=== PATIENT | female | born 1950 | race Caucasian/White ===

== ENCOUNTER → 2017-07-31 | Outpatient (CLI) | payer MEDICARE, OTHER ==
[~2017-07-31] MED LIST: ALDACTONE50 MG PO; AMBIEN 10MG10 MG PO; AMBIEN CR 12.12.5 MG PO; AMBIEN CR12.5 MG PO; ASACOL HD800 MG PO; ASPIR-LOW81 MG PO; ASPIRIN 32325 MG/TAB PO; ATARAX 25MG25 MG/TAB PO; BENICAR 20MG TA20 MG PO; BENICAR40 MG PO; BENTYL 10MG10 MG/CAP PO; BENTYL 20MG20 MG/TAB PO; CARVEDILOL PO; CATAPRES 0.1MG0.1 MG PO; CATAPRES-TTS 10.1 M1 TD; CATAPRES-TTS 20.2 M1 TOP; CATAPRES0.2 MG PO; CEFTIN 250250 MG/TAB PO; CLONIDINE0.1 MG PO; COLACE 100100 MG/CAP PO; COREG; COREG 25MG25 MG/TAB PO; COZAAR100 MG PO; CYMBALTA 30MG30 MG PO; CYMBALTA 60MG60 MG PO; DIAZEPAM PO; DOXAZOCIN; ECOTRIN325 MG PO; FISH OIL1 IU PO; GUAIATUSSIN AC120 ML PO; HCTZ; HCTZ 25MG TAB25 MG PO; HCTZ 25MG25 MG PO; HYDROCODONE/APAP; HYGROTON 2525 MG/TAB PO; HYZAAR PO; IBUPROFEN400 MG PO; IRON TABLETS325 MG PO; K-DUR 10 MEQ T10 MEQ PO; KLOR-CON 1010 MEQ; KLOR-CON 1010 MEQ PO; LEVAQUIN 5500 MG/TA1 PO; LYRICA 100MG C100 M1 PO; LYRICA 150MG C150 MG PO; MACROBID 1100 MG/CAP PO; NATURAL HORMONES; NEURONTIN300 MG/CAP PO; NITROSTAT0.4 MG SL; NORCO 325 MG-51 TAB PO; NORVASC 5MG5 MG/TAB PO; NORVASC2.5 MG PO; OCEAN NASAL SPR45 ML; PERCOCET 325 MG1 TA2 PO; PROTONIX 40MG T40 MG PO; PROVENTIL0.09 MG/A1 IH; RESTORIL 1515 MG/CAP PO; RESTORIL15 MG PO; SPIRONOLACTONE25 MG PO; TAMIFLU 75MG75 MG PO; TOPAMAX50 MG PO; TRAZADONE HYDR100 MG PO; VALIUM 5MG T5 MG/TAB PO; VALIUM5 MG PO; VITAMIN C500 MG PO; omacor
== END ==
LOC: COL.RAD 13:24
DX: R13.10 Dysphagia, unspecified (principal); K44.9 Diaphragmatic hernia without obstruction or gangrene

== ENCOUNTER 2018-03-03 11:35 | Observation (INO) | payer MEDICARE, OTHER ==
[~2018-03-03] VITALS: Ht 149.9 cm; Wt 63.8 kg
[2018-03-03] MEDS ORDERED: HCTZ 25MG TAB25 MG PO (11:59)
[2018-03-03] MEDS ORDERED: DIOVAN 160MG160 MG PO (11:59)
[2018-03-03] MEDS ORDERED: PROCARDIA20 MG PO (12:01)
[2018-03-03] MEDS ORDERED: NITROSTAT0.4 MG/TAB PO (12:02)
[2018-03-03 12:06] LABS: COLLECTION METHOD CLEAN CATCH
[2018-03-03 12:11] LABS: BASO # 0.1 (0.0-0.2); BASO % 0.9 % (0.0-2.0); EOS # 0.4 (0.0-0.7); EOS % 3.1 % (0-4.0); GRAN # 7.5 (1.4-6.5); GRAN % 58.4 % (42.2-75.2); HEMATOCRIT 44.1 % (37.0-47.0); LYMPH # 4.1 (1.2-3.4); LYMPH % 31.8 % (20.0-51.0); MEAN CELL VOLUME 91 fl (80.0-100.0); MEAN CORPUSCULAR HEMOGLOBIN 31 pg (27.0-31.0); MEAN CORPUSCULAR HGB CONC 34 g/dl (33.0-37.0); MEAN PLATELET VOLUME 10.5 fl (7.4-10.4); MONO # 0.7 (0.1-0.6); MONO % 5.4 % (1.7-9.3); PLATELET COUNT 348 K/mm3 (130-400); RED BLOOD COUNT 4.87 M/mm3 (4.10-5.30); REDCELL DISTRIBUTION WIDTH-CV 12.5 % (11.5-14.5)
[2018-03-03 12:13] LABS: PH 6 (5-8); SQUAMOUS EPITHELIAL 0-2 /hpf; URINE APPEARANCE Clear; URINE BACTERIA None Seen /hpf; URINE BILIRUBIN Negative (NEGATIVE); URINE BLOOD Negative (NEGATIVE); URINE COLOR Straw; URINE GLUCOSE Negative (NEGATIVE); URINE KETONE Negative (NEGATIVE); URINE LEUKOCYTE ESTERASE Negative (NEGATIVE); URINE NITRATE Negative (NEGATIVE); URINE PROTEIN(semi-quant) Negative (NEGATIVE); URINE RBC 0-2 /hpf; URINE UROBILINOGEN Negative (NEGATIVE)
[2018-03-03 12:24] LABS: ALBUMIN 4.1 gm/dL (3.5-5.0); BILIRUBIN,TOTAL 0.6 mg/dL (0.0-1.0); CALCIUM 10.1 mg/dL (8.4-10.2); CREATININE, serum 0.97 mg/dL (0.52-1.25); POTASSIUM 3.4 mmol/L (3.4-5.0); TOTAL PROTEIN 7.3 gm/dL (6.4-8.2)
[2018-03-03 17:30] VITALS: BP 141/65; PULSE 60; TEMP 97.8
[2018-03-03] MEDS ORDERED: CARDURA 1MG1 MG PO (17:41)
[2018-03-03 20:00] VITALS: BP 122/68; PULSE 60; TEMP 98.1
[2018-03-04] VITALS (8 sets, daily range): BP systolic 104–131; BP diastolic 49–65; PULSE 58–77; TEMP 97.2–98.8
[2018-03-04 07:16] LABS: BASO # 0.1 (0.0-0.2); BASO % 1.2 % (0.0-2.0); EOS # 0.5 (0.0-0.7); EOS % 4.3 % (0-4.0); GRAN # 6.4 (1.4-6.5); GRAN % 58.4 % (42.2-75.2); HEMATOCRIT 39.3 % (37.0-47.0); LYMPH # 2.9 (1.2-3.4); LYMPH % 26.6 % (20.0-51.0); MEAN CELL VOLUME 93 fl (80.0-100.0); MEAN CORPUSCULAR HEMOGLOBIN 31 pg (27.0-31.0); MEAN CORPUSCULAR HGB CONC 33 g/dl (33.0-37.0); MEAN PLATELET VOLUME 10.5 fl (7.4-10.4); MONO % 9.1 % (1.7-9.3); PLATELET COUNT 282 K/mm3 (130-400); RED BLOOD COUNT 4.21 M/mm3 (4.10-5.30); REDCELL DISTRIBUTION WIDTH-CV 12.9 % (11.5-14.5)
[2018-03-04 07:19] LABS: HEMOGLOBIN 12.9 g/dl (12.5-16.0)
[2018-03-04 07:23] LABS: CALCIUM 8.7 mg/dL (8.4-10.2); CREATININE, serum 0.84 mg/dL (0.52-1.25); POTASSIUM 3.4 mmol/L (3.4-5.0)
[2018-03-05 04:09] VITALS: BP 127/65; PULSE 60; TEMP 97.9
[2018-03-05 07:55] VITALS: BP 96/50; PULSE 66; TEMP 98
[2018-03-05 08:37] LABS: BASO # 0.1 (0.0-0.2); BASO % 1.2 % (0.0-2.0); EOS # 0.5 (0.0-0.7); EOS % 4.9 % (0-4.0); GRAN # 5.3 (1.4-6.5); GRAN % 52.3 % (42.2-75.2); HEMOGLOBIN 12.7 g/dl (12.5-16.0); LYMPH # 3.4 (1.2-3.4); LYMPH % 33.3 % (20.0-51.0); MEAN CELL VOLUME 91 fl (80.0-100.0); MEAN CORPUSCULAR HEMOGLOBIN 30 pg (27.0-31.0); MEAN CORPUSCULAR HGB CONC 33 g/dl (33.0-37.0); MEAN PLATELET VOLUME 10.4 fl (7.4-10.4); MONO # 0.8 (0.1-0.6); PLATELET COUNT 276 K/mm3 (130-400); RED BLOOD COUNT 4.19 M/mm3 (4.10-5.30); REDCELL DISTRIBUTION WIDTH-CV 12.8 % (11.5-14.5)
[2018-03-05 08:40] LABS: CALCIUM 8.8 mg/dL (8.4-10.2); CREATININE, serum 0.79 mg/dL (0.52-1.25); POTASSIUM 3.4 mmol/L (3.4-5.0)
[2018-03-05] MEDS ORDERED: BENADRYL25 M2 PO (08:53)
[2018-03-05] MEDS ORDERED: CIPRO 500MG TA500 MG PO (08:55)
[2018-03-05] MEDS ORDERED: FLAGYL500 MG PO (08:55)
[2018-03-05] MEDS ORDERED: ULTRAM 50MG TAB50 MG PO (08:57)
[2018-03-05] MEDS ORDERED: HCTZ 25MG TAB25 MG PO (08:58)
[2018-03-05] MEDS ORDERED: DIOVAN 80MG80 MG PO (09:00)
[2018-03-05] MEDS ORDERED: ZOFRAN ODT4 MG PO ×3 (09:14→09:15)
== END 2018-03-05 10:00 | disposition home or self-care (01) ==
LOC: COL.ER 11:35 → MEDICAL 15:59
PROVIDERS: Emergency Medicine; Physician Assistant
DX: K52.9 Noninfective gastroenteritis and colitis, unspecified (principal); I10 Essential (primary) hypertension; K21.9 Gastro-esophageal reflux disease without esophagitis; K44.9 Diaphragmatic hernia without obstruction or gangrene; J45.909 Unspecified asthma, uncomplicated; Z90.710 Acquired absence of both cervix and uterus; Z90.721 Acquired absence of ovaries, unilateral; Z88.2 Allergy status to sulfonamides; Z88.6 Allergy status to analgesic agent; Z82.49 Family history of ischemic heart disease and other diseases of the circulatory system; Z80.51 Family history of malignant neoplasm of kidney
CPT/HCPCS: 99231-AI; G0378; G8978-GP; G8979-GP; J0744; J2270; J2405; J3010; J7030; Q9967

== ENCOUNTER 2018-04-26 16:05 | Inpatient (IN) | payer MEDICARE, OTHER ==
[~2018-04-26] VITALS: Ht 149.9 cm; Wt 61.4 kg
[~2018-04-26 16:05] MED LIST changes: +BENADRYL25 M2 PO; +CARDURA 1MG1 MG PO; +CIPRO 500MG TA500 MG PO; +DIOVAN 160MG160 MG PO; +DIOVAN 80MG80 MG PO; +FLAGYL500 MG PO; +NITROSTAT0.4 MG/TAB PO; +PROCARDIA20 MG PO; +ULTRAM 50MG TAB50 MG PO; +ZOFRAN ODT4 MG PO
[2018-04-26 16:41] LABS: BASO # 0.2 (0.0-0.2); BASO % 1.3 % (0.0-2.0); EOS # 0.5 (0.0-0.7); EOS % 4.3 % (0-4.0); GRAN # 5.7 (1.4-6.5); GRAN % 48.9 % (42.2-75.2); HEMATOCRIT 46.9 % (37.0-47.0); HEMOGLOBIN 16.2 g/dl (12.5-16.0); LYMPH # 4.4 (1.2-3.4); MEAN CELL VOLUME 88 fl (80.0-100.0); MEAN CORPUSCULAR HEMOGLOBIN 31 pg (27.0-31.0); MEAN CORPUSCULAR HGB CONC 35 g/dl (33.0-37.0); MONO # 0.8 (0.1-0.6); MONO % 7.2 % (1.7-9.3); PLATELET COUNT 360 K/mm3 (130-400); RED BLOOD COUNT 5.32 M/mm3 (4.10-5.30)
[2018-04-26 16:55] LABS: ALANINE AMINOTRANSFERASE 42 U/L (9-52); ALBUMIN 4.7 gm/dL (3.5-5.0); ALKALINE PHOSPHATASE 95 U/L (50-136); ANION GAP 18 mmol/L (7-16); AST,SGOT 34 U/L (15-37); BILIRUBIN,TOTAL 0.6 mg/dL (0.0-1.0); BLOOD UREA NITROGEN 13 mg/dL (7-17); C-REACTIVE PROTEIN 1.2 mg/dL (0.0-0.9); CARBON DIOXIDE 25 mmol/L (22-30); CHLORIDE 92 mmol/L (98-107); CREATININE, serum 0.84 mg/dL (0.52-1.25); GLUCOSE 162 mg/dL (74-106); LIPASE 40 U/L (23-300); SODIUM 136 mmol/L (137-145)
[2018-04-26 16:56] LABS: POTASSIUM 2.8 mmol/L (3.4-5.0)
[2018-04-26 17:03] LABS: TROPONIN-I < 0.012 ng/mL (0.000-0.034)
[2018-04-26 17:32] LABS: COLLECTION METHOD CLEAN CATCH
[2018-04-26 17:37] LABS: MUCOUS Present /lpf; PH 7 (5-8); URINE APPEARANCE Clear; URINE BACTERIA None Seen /hpf; URINE BILIRUBIN Negative (NEGATIVE); URINE BLOOD Negative (NEGATIVE); URINE COLOR Amber; URINE GLUCOSE Negative (NEGATIVE); URINE KETONE Trace (NEGATIVE); URINE LEUKOCYTE ESTERASE Negative (NEGATIVE); URINE NITRATE Negative (NEGATIVE); URINE PROTEIN(semi-quant) Negative (NEGATIVE); URINE RBC 0-2 /hpf; URINE UROBILINOGEN >=4.0 mg/dL (NEGATIVE)
[2018-04-26] MEDS ORDERED: DIOVAN 40MG40 MG PO (19:57)
[2018-04-26] MEDS ORDERED: ALDACTONE 25MG25 M1 PO (19:57)
[2018-04-26 21:12] LABS: MAGNESIUM 1.4 mg/dL (1.6-2.3)
[2018-04-26 21:24] LABS: TROPONIN-I < 0.012 ng/mL (0.000-0.034)
[2018-04-26 22:36] VITALS: BP 140/63; PULSE 83; TEMP 97.9
[2018-04-27] VITALS (8 sets, daily range): BP systolic 105–146; BP diastolic 37–63; PULSE 61–98; TEMP 97.7–98.3
[2018-04-27 07:05] LABS: BASO # 0.1 (0.0-0.2); EOS # 0.4 (0.0-0.7); EOS % 3.8 % (0-4.0); GRAN # 5.9 (1.4-6.5); GRAN % 53.1 % (42.2-75.2); HEMATOCRIT 37.3 % (37.0-47.0); LYMPH # 3.6 (1.2-3.4); LYMPH % 32.6 % (20.0-51.0); MEAN CELL VOLUME 90 fl (80.0-100.0); MEAN CORPUSCULAR HEMOGLOBIN 31 pg (27.0-31.0); MEAN CORPUSCULAR HGB CONC 34 g/dl (33.0-37.0); MEAN PLATELET VOLUME 10.1 fl (7.4-10.4); MONO % 9.1 % (1.7-9.3); PLATELET COUNT 268 K/mm3 (130-400); RED BLOOD COUNT 4.14 M/mm3 (4.10-5.30); REDCELL DISTRIBUTION WIDTH-CV 13.1 % (11.5-14.5)
[2018-04-27 07:07] LABS: HEMOGLOBIN 12.7 g/dl (12.5-16.0)
[2018-04-27 07:17] LABS: ALANINE AMINOTRANSFERASE 35 U/L (9-52); ALBUMIN 3.2 gm/dL (3.5-5.0); ALKALINE PHOSPHATASE 60 U/L (50-136); ANION GAP 9 mmol/L (7-16); AST,SGOT 30 U/L (15-37); BILIRUBIN,TOTAL 0.6 mg/dL (0.0-1.0); BLOOD UREA NITROGEN 8 mg/dL (7-17); CALCIUM 7.9 mg/dL (8.4-10.2); CARBON DIOXIDE 26 mmol/L (22-30); CHLORIDE 100 mmol/L (98-107); GLUCOSE 93 mg/dL (74-106); POTASSIUM 3.1 mmol/L (3.4-5.0); SODIUM 135 mmol/L (137-145); TOTAL PROTEIN 5.7 gm/dL (6.4-8.2)
[2018-04-27 07:29] LABS: TROPONIN-I < 0.012 ng/mL (0.000-0.034)
[2018-04-28 04:42] VITALS: BP 126/53; PULSE 83; TEMP 99.1
[2018-04-28 08:09] LABS: BASO # 0.1 (0.0-0.2); BASO % 1.3 % (0.0-2.0); EOS # 0.6 (0.0-0.7); EOS % 5.6 % (0-4.0); GRAN # 6.6 (1.4-6.5); GRAN % 64.8 % (42.2-75.2); HEMATOCRIT 37.1 % (37.0-47.0); HEMOGLOBIN 12.5 g/dl (12.5-16.0); LYMPH % 20.1 % (20.0-51.0); MEAN CELL VOLUME 91 fl (80.0-100.0); MEAN CORPUSCULAR HEMOGLOBIN 31 pg (27.0-31.0); MEAN CORPUSCULAR HGB CONC 34 g/dl (33.0-37.0); MEAN PLATELET VOLUME 10.5 fl (7.4-10.4); MONO # 0.8 (0.1-0.6); MONO % 7.8 % (1.7-9.3); PLATELET COUNT 292 K/mm3 (130-400); RED BLOOD COUNT 4.09 M/mm3 (4.10-5.30); REDCELL DISTRIBUTION WIDTH-CV 13.1 % (11.5-14.5)
[2018-04-28 08:24] LABS: CREATININE, serum 0.71 mg/dL (0.52-1.25)
[2018-04-28 08:30] LABS: POTASSIUM 2.8 mmol/L (3.4-5.0)
[2018-04-28 11:46] VITALS: BP 99/79; PULSE 60; TEMP 98.6
[2018-04-28 15:12] VITALS: BP 135/71; PULSE 57; TEMP 97.9
[2018-04-28 21:38] VITALS: BP 120/79; PULSE 70; TEMP 97.9
[2018-04-29 00:33] VITALS: BP 133/73; PULSE 73; TEMP 98.3
[2018-04-29 03:30] VITALS: BP 127/61; PULSE 67; TEMP 99.4
[2018-04-29 07:38] LABS: CALCIUM 8.5 mg/dL (8.4-10.2); CREATININE, serum 0.7 mg/dL (0.52-1.25); POTASSIUM 3.4 mmol/L (3.4-5.0)
[2018-04-29 08:20] VITALS: BP 154/99; PULSE 61; TEMP 98.3
[2018-04-29] MEDS ORDERED: CIPRO 500MG TA500 MG PO (11:20)
[2018-04-29] MEDS ORDERED: FLAGYL500 MG PO (11:20)
[2018-04-29] MEDS ORDERED: DIFLUCAN150 MG PO (11:22)
[2018-04-29] MEDS ORDERED: BENTYL 10MG10 MG/CAP PO (11:23)
== END 2018-04-29 11:45 | disposition home or self-care (01) | DRG 393 ==
LOC: COL.ER 16:05 → MEDICAL 18:51
PROVIDERS: Emergency Medicine; Internal Medicine Gastroenterology; Nurse Practitioner Family; Physician Assistant
PROC: 0DJ08ZZ Inspection of Upper Intestinal Tract, Via Natural or Artificial Opening Endoscopic (ICD-10-PCS; 2018-04-28)
PROC: 0DBN8ZX Excision of Sigmoid Colon, Via Natural or Artificial Opening Endoscopic, Diagnostic (ICD-10-PCS; principal; 2018-04-28 08:00)
PROC: 0W3P8ZZ Control Bleeding in Gastrointestinal Tract, Via Natural or Artificial Opening Endoscopic (ICD-10-PCS; 2018-04-28 08:00)
DX: K55.031 Focal (segmental) acute (reversible) ischemia of large intestine (principal); K55.21 Angiodysplasia of colon with hemorrhage; E87.1 Hypo-osmolality and hyponatremia; E87.2 Acidosis; E87.6 Hypokalemia; E83.42 Hypomagnesemia; I10 Essential (primary) hypertension; J45.909 Unspecified asthma, uncomplicated; K21.9 Gastro-esophageal reflux disease without esophagitis; K44.9 Diaphragmatic hernia without obstruction or gangrene
CPT/HCPCS: 99222-AI; 99232-AI; 99239; C9113; G0378; J0744; J1170; J2405; J2704; J2765; J3010; J3475; J3480; J7030; Q9967